=== PATIENT | female | born 2000 | race Two or more races ===

== ENCOUNTER 2021-06-29 17:54 | Emergency (ER) | payer OTHER ==
[~2021-06-29] VITALS: Ht 162.6 cm; Wt 90.7 kg
== END 2021-06-29 20:52 | disposition home or self-care (01) ==
LOC: ER 17:54
DX: S60.00XA Contusion of unspecified finger without damage to nail, initial encounter (principal); X58.XXXA Exposure to other specified factors, initial encounter; Y93.9 Activity, unspecified; Y92.9 Unspecified place or not applicable; Y99.1 Military activity